=== PATIENT | female | born 2000 | race Caucasian/White ===

== ENCOUNTER 2021-03-19 12:22 | Emergency (ER) | payer BC, SELFPAY ==
[2021-03-19 12:39] VITALS: BP 112/77; PULSE 85; RESP 16; TEMP 36.9; O2SAT 99
--- NOTE | 2021-03-19 12:47 | ED.URI ---
HPI - URI/Sore Throat General Chief Complaint: Upper Respiratory Infection Stated Complaint: sore throat,congestion,cough, - for Covid Time Seen by Provider: 03/19/21 12:47 Source: patient Mode of arrival: ambulatory Limitations: no limitations History of Present Illness HPI Narrative: 20-year-old woman comes in today complaining of 1 day of nasal congestion, fever, chills, sore throat cough. She is here with her mother with similar symptoms. Patient had a rapid COVID test yesterday at work which was negative. She denies any vomiting, difficulty breathing, chest pain, diarrhea. She denies history of lung disease. MD elicited complaint: fever, cough, sore throat and rhinorrhea Onset (ago): day(s) (1) Consistency: constant and progressively worsening Severity: moderate Able to tolerate fluids by mouth: Yes Exacerbating factors: nothing Relieving factors: nothing Context: other(s) with similar symptoms Associated symptoms: fever, chills, rhinorrhea, nasal congestion, sore throat and cough Related Data Allergies Allergy/AdvReac Type Severity Reaction Status Date / Time No Known Allergies Allergy Verified 03/19/21 12:38 Review of Systems Review of Systems: All systems reviewed & are unremarkable except as noted in HPI and below Constitutional: Constitutional: Reports chills, Reports fatigue, Reports fever(s) and Denies weakness Eyes: Eyes: Denies change in vision and Denies photophobia ENT: Denies dysphagia, Reports nasal congestion and Reports sore throat Cardiovascular: Cardiovascular: Denies chest pain Respiratory: Respiratory: Reports cough and Denies dyspnea Gastrointestinal: Gastrointestinal: Denies abdominal pain, Denies diarrhea, Denies nausea and Denies vomiting Musculoskeletal: Musculoskeletal: Denies back pain, Denies arthralgias and Denies joint swelling Integumentary/Breasts: Skin/Breast: Denies pruritus, Denies erythema and Denies rash Neurologic: Denies vertigo, Denies dizziness and Denies syncope Allergic/Immunologic: Allergic/Immunologic: Denies lip swelling and Denies throat swelling [facility] Social History Social History Tobacco type: e-cigarettes/vaping Alcohol intake: never Substance use: never Exam Const: General: healthy appearing, no acute distress and alert Orientation/consciousness: patient oriented x3 Limitations: no limitations HENMT: Head: normal to inspection Ears: external ears normal, TM's normal bilaterally and EAC's normal Face and sinus: normal facial exam Mouth: Yes moist mucous membranes Throat: posterior oropharynx normal and uvula midline Eyes: Conjunctivae: conjunctivae normal Pupils: Equal, round and reactive pupils present EOM: EOMs intact bilaterally Resp: Effort & Inspection: normal respiratory effort and not labored Auscultation: clear to auscultation bilaterally, no rales, no rhonchi and no wheezes Cardio: Rate: regular rate Rhythm: regular rhythm Heart sounds: no murmurs Skin: General skin exam: normal color, no jaundice and no pallor Rashes: no rashes Neuro: General: No patient oriented x3, No moves all extremities, No no focal motor deficits and No CN's II-XI intact bilaterally Speech: No normal speech Gait exam (Neuro): gait abnormal Extrem: General: abnormal to inspection and clubbing, cyanosis or edema noted Psych: Appearance: grossly normal and well kempt Mental Status: mental status grossly normal Affect: normal affect Attitude: cooperative Thought content: Yes Normal thought content present Course Vital Signs Vital signs: Vital Signs Temperature 36.9 C 03/19/21 12:39 Pulse Rate 85 03/19/21 12:39 Respiratory Rate 16 03/19/21 12:39 Blood Pressure 112/77 03/19/21 12:39 Pulse Oximetry 99 03/19/21 12:39 Temperature 36.9 C 03/19/21 12:39 Pulse Rate 85 03/19/21 12:39 Respiratory Rate 16 03/19/21 12:39 Blood Pressure 112/77 03/19/21 12:39 Pulse Oxime
[2021-03-19 13:27] LABS: Influenza Control Valid (Valid)
== END 2021-03-19 13:44 | disposition home or self-care (01) ==
PROVIDERS: Emergency Provider Emergency Medicine
DX: J40 Bronchitis, not specified as acute or chronic (principal)
CPT/HCPCS: 87804; 99283